=== PATIENT | male | born 1945 | race Caucasian/White ===

== ENCOUNTER 2020-01-23 11:29 | Inpatient (IN) ==
[2020-01-23 12:19] LABS: ABG Base Excess 2.3 MMOL/L (-2.5-2.5); ABG HCO3 26.5 MMOL/L (20-26); ABG Oxygen Saturation 96.8 % (95-100); ABG PCO2 40.1 MM HG (35-48); ABG PH 7.432 (7.35-7.45); ABG PO2 89.1 MM HG (80-95); ABG TCO2 23.7 MMOL/L (23-27)
[2020-01-23 12:29] LABS: Basophils % 0.2 % (0.0-0.8); Hematocrit 37.5 VOL% (42.0-52.0); Immature Granulocytes % 0.5 %; Immature Granulocytes Absolute 0.03 #; Lymphocytes # 0.2 10*3/uL (1.4-4.0); Lymphocytes % 3.9 % (21.2-54.2); Monocytes % 5.4 % (1.7-12.7); Platelet Count 137 T/CUMM (130-400); Red Blood Count 3.75 MC/CUMM (3.8-5.5); Red Cell Distribution Width 17.1 % (9.3-17.3); White Blood Count 5.9 T/CUMM (4-12)
[2020-01-23 12:44] LABS: INR 1.2; PT Patient Result 12.5 SECS (9.8-11.9); Partial Thromboplastin Time 26.6 SECS (23.9-33.8)
[2020-01-23 12:51] LABS: Albumin 1.7 G/DL (3.4-5.0); Bilirubin,Total 0.6 MG/DL (0.2-1.0); Calcium 7.9 MG/DL (8.5-10.1); Osmolality,Calculated 274.7 MOS/KG (273-304); Total Protein 5.4 G/DL (6.4-8.3)
[2020-01-23 12:57] LABS: Anisocytosis Slight; Lymphocytes 5 % (20-55); Macrocytosis Slight; Platelet Estimate Adequate; Segmented Neutrophils 91 % (50-85); Total Cells Counted 100
[2020-01-23 12:58] LABS: Reactive Lymphocytes Slight
[2020-01-23] MEDS ORDERED: MAGNESIUM SULF RIDER 4 GM in PREMIX 1 EACH IV PRN (17:25)
[2020-01-23] MEDS ORDERED: ACETAMINOPHEN 325 MG TABLET PO PRN (17:25)
[2020-01-23] MEDS ORDERED: ONDANSETRON 4 MG/2 ML VIAL IV PRN (17:25)
[2020-01-23] MEDS ORDERED: DEXTROSE 50% 25 GM/50 ML VIAL IV PRN (17:25)
[2020-01-23] MEDS ORDERED: MAGNESIUM SULF RIDER 2 GM in PREMIX 1 EACH IV PRN (17:25)
[2020-01-23] MEDS ORDERED: POTASSIUM CHLORIDE RIDER 10 MEQ in PREMIX 1 EACH IV PRN (17:25)
[2020-01-23] MEDS ORDERED: GLUCAGON 1 MG VIAL IM PRN (17:25)
[2020-01-23] MEDS: SODIUM CHLORIDE 0.9% 1,000 ML IV SCH (18:17)
[2020-01-23] MEDS: cefTRIAXone 1,000 MG in SYRINGE 1 EACH IV SCH (18:18)
[2020-01-23] MEDS: methylPREDNISolone SOD SUC 40 MG/1 ML VIAL IV SCH (18:18)
[2020-01-23] MEDS: INSULIN LISPRO 100 UNIT/ML SUBCUT SCH (21:00)
[2020-01-23] MEDS: DOCUSATE SODIUM 100 MG CAPSULE PO SCH (21:30)
[2020-01-23] MEDS: ENOXAPARIN 40 MG/0.4 ML SYRINGE SUBCUT SCH (21:30)
[2020-01-23 22:12] LABS: Apearance,Urine CLEAR (Clear); Bilirubin,Urine Negative (Negative); Blood, Urine Negative (Negative); Glucose,Urine (UA) Negative (Negative); Hyaline Casts,Urine 1 /LPF (0-3); Ketones,Urine 5 mg/dL (Negative); Mucus,Urine Few /LPF (Occasional); Nitrite,Urine Negative (Negative); Protein,Urine Negative; RBC,Urine <1 /HPF (0-4); Urine Color Yellow (Yellow); WBC,Urine 1 /HPF (0-6)
[2020-01-24] MEDS: SODIUM CHLORIDE 0.9% 1,000 ML IV SCH ×4 (02:21→21:29)
[2020-01-24] MEDS: methylPREDNISolone SOD SUC 40 MG/1 ML VIAL IV SCH ×2 (05:31→21:30)
[2020-01-24 06:38] LABS: Calcium 8.6 MG/DL (8.5-10.1); Osmolality,Calculated 280.4 MOS/KG (273-304)
[2020-01-24] MEDS ORDERED: PANTOPRAZOLE 40 MG TABLET PO SCH (09:00)
[2020-01-24] MEDS: INSULIN LISPRO 100 UNIT/ML SUBCUT SCH ×4 (09:07→21:33)
[2020-01-24] MEDS: cefTRIAXone 1,000 MG in SYRINGE 1 EACH IV SCH (09:08)
[2020-01-24] MEDS: DOCUSATE SODIUM 100 MG CAPSULE PO SCH ×2 (09:08→21:30)
[2020-01-24] MEDS: ENOXAPARIN 40 MG/0.4 ML SYRINGE SUBCUT SCH (21:32)
[2020-01-25] MEDS: SODIUM CHLORIDE 0.9% 1,000 ML IV SCH ×3 (04:47→18:09)
[2020-01-25 05:40] LABS: Hematocrit 35.1 VOL% (42.0-52.0); Hemoglobin 11.2 GM/DL (14.0-18.0); Immature Granulocytes % 0.6 %; Immature Granulocytes Absolute 0.02 #; Lymphocytes # 0.3 10*3/uL (1.4-4.0); Lymphocytes % 10.5 % (21.2-54.2); Mean Corpuscular HGB Conc 31.9 GM/DL (32-36); Mean Corpuscular Volume 101.4 FL (87-102); Monocytes % 4.1 % (1.7-12.7); Neutrophils % 84.8 % (38.7-73.9); Platelet Count 117 T/CUMM (130-400); Red Blood Count 3.46 MC/CUMM (3.8-5.5); Red Cell Distribution Width 16.7 % (9.3-17.3); White Blood Count 3.1 T/CUMM (4-12)
[2020-01-25 05:52] LABS: Calcium 8.4 MG/DL (8.5-10.1); Osmolality,Calculated 282.4 MOS/KG (273-304)
[2020-01-25] MEDS: cefTRIAXone 1,000 MG in SYRINGE 1 EACH IV SCH (08:53)
[2020-01-25] MEDS: INSULIN LISPRO 100 UNIT/ML SUBCUT SCH ×4 (08:53→21:41)
[2020-01-25] MEDS: DOCUSATE SODIUM 100 MG CAPSULE PO SCH ×2 (08:53→21:50)
[2020-01-25] MEDS: methylPREDNISolone SOD SUC 40 MG/1 ML VIAL IV SCH ×2 (08:54→21:48)
[2020-01-25] MEDS: ENOXAPARIN 40 MG/0.4 ML SYRINGE SUBCUT SCH (21:50)
[2020-01-26] MEDS: SODIUM CHLORIDE 0.9% 1,000 ML IV SCH ×3 (01:56→17:36)
[2020-01-26 06:06] LABS: Calcium 8.1 MG/DL (8.5-10.1); Osmolality,Calculated 281.4 MOS/KG (273-304)
[2020-01-26] MEDS: INSULIN LISPRO 100 UNIT/ML SUBCUT SCH ×4 (08:00→20:33)
[2020-01-26] MEDS: cefTRIAXone 1,000 MG in SYRINGE 1 EACH IV SCH (08:40)
[2020-01-26] MEDS: methylPREDNISolone SOD SUC 40 MG/1 ML VIAL IV SCH ×2 (08:42→21:12)
[2020-01-26] MEDS: DOCUSATE SODIUM 100 MG CAPSULE PO SCH ×2 (08:42→21:11)
[2020-01-26] MEDS: ENOXAPARIN 40 MG/0.4 ML SYRINGE SUBCUT SCH (21:11)
[2020-01-27 06:41] LABS: Calcium 8.1 MG/DL (8.5-10.1); Osmolality,Calculated 282.3 MOS/KG (273-304)
[2020-01-27] MEDS: INSULIN LISPRO 100 UNIT/ML SUBCUT SCH ×4 (07:30→20:54)
[2020-01-27] MEDS: DOCUSATE SODIUM 100 MG CAPSULE PO SCH ×2 (08:57→20:53)
[2020-01-27] MEDS: methylPREDNISolone SOD SUC 40 MG/1 ML VIAL IV SCH ×2 (08:59→20:10)
[2020-01-27] MEDS: cefTRIAXone 1,000 MG in SYRINGE 1 EACH IV SCH (09:02)
[2020-01-27] MEDS ORDERED: diphenhydrAMINE CAP 25 MG CAPSULE PO ONE (11:27)
[2020-01-27] MEDS: diphenhydrAMINE CAP 25 MG CAPSULE PO SCH (20:53)
[2020-01-27] MEDS: ENOXAPARIN 40 MG/0.4 ML SYRINGE SUBCUT SCH (20:54)
[2020-01-27] MEDS: TEMAZEPAM 7.5 MG CAPSULE PO SCH (20:54)
[2020-01-27] MEDS: SODIUM CHLORIDE 0.9% 1,000 ML IV SCH (20:59)
[2020-01-28 04:29] LABS: Osmolality,Calculated 284.3 MOS/KG (273-304)
[2020-01-28] MEDS: INSULIN LISPRO 100 UNIT/ML SUBCUT SCH ×4 (08:47→20:42)
[2020-01-28] MEDS: DOCUSATE SODIUM 100 MG CAPSULE PO SCH ×2 (08:48→20:41)
[2020-01-28] MEDS: cefTRIAXone 1,000 MG in SYRINGE 1 EACH IV SCH (08:48)
[2020-01-28] MEDS: methylPREDNISolone SOD SUC 40 MG/1 ML VIAL IV SCH ×2 (08:48→20:38)
[2020-01-28] MEDS: diphenhydrAMINE CAP 25 MG CAPSULE PO SCH ×2 (08:48→20:41)
[2020-01-28] MEDS: SODIUM CHLORIDE 0.9% 1,000 ML IV SCH ×2 (11:24→20:47)
[2020-01-28 15:08] LABS: Hematocrit 36.9 VOL% (42.0-52.0); Immature Granulocytes % 0.3 %; Immature Granulocytes Absolute 0.02 #; Lymphocytes # 0.5 10*3/uL (1.4-4.0); Lymphocytes % 8.4 % (21.2-54.2); Mean Corpuscular HGB Conc 32.5 GM/DL (32-36); Mean Corpuscular Volume 98.9 FL (87-102); Mean Platelet Volume 10.7 FL (9.6-12.0); Monocytes % 3.9 % (1.7-12.7); Neutrophils % 87.4 % (38.7-73.9); Platelet Count 148 T/CUMM (130-400); Red Blood Count 3.73 MC/CUMM (3.8-5.5); Red Cell Distribution Width 16.6 % (9.3-17.3); White Blood Count 6.2 T/CUMM (4-12)
[2020-01-28] MEDS: TEMAZEPAM 7.5 MG CAPSULE PO SCH (20:41)
[2020-01-28] MEDS: ENOXAPARIN 40 MG/0.4 ML SYRINGE SUBCUT SCH (20:41)
[2020-01-29 06:39] LABS: Calcium 7.9 MG/DL (8.5-10.1); Osmolality,Calculated 279.5 MOS/KG (273-304)
[2020-01-29] MEDS: INSULIN LISPRO 100 UNIT/ML SUBCUT SCH ×4 (07:06→21:24)
[2020-01-29] MEDS: diphenhydrAMINE CAP 25 MG CAPSULE PO SCH ×2 (09:12→21:24)
[2020-01-29] MEDS: methylPREDNISolone SOD SUC 40 MG/1 ML VIAL IV SCH (09:13)
[2020-01-29] MEDS: cefTRIAXone 1,000 MG in SYRINGE 1 EACH IV SCH (09:13)
[2020-01-29] MEDS: DOCUSATE SODIUM 100 MG CAPSULE PO SCH ×2 (09:17→21:24)
[2020-01-29] MEDS: SODIUM CHLORIDE 0.9% 1,000 ML IV SCH ×2 (09:18→10:09)
[2020-01-29] MEDS: TEMAZEPAM 7.5 MG CAPSULE PO SCH (21:24)
[2020-01-29] MEDS: ENOXAPARIN 40 MG/0.4 ML SYRINGE SUBCUT SCH (21:24)
[2020-01-30] MEDS: SODIUM CHLORIDE 0.9% 1,000 ML IV SCH ×2 (00:13→01:00)
[2020-01-30] MEDS: INSULIN LISPRO 100 UNIT/ML SUBCUT SCH ×5 (07:28→21:35)
[2020-01-30] MEDS: DOCUSATE SODIUM 100 MG CAPSULE PO SCH ×3 (08:39→21:34)
[2020-01-30] MEDS: diphenhydrAMINE CAP 25 MG CAPSULE PO SCH ×2 (08:39→21:34)
[2020-01-30] MEDS: cefTRIAXone 1,000 MG in SYRINGE 1 EACH IV SCH (08:40)
[2020-01-30] MEDS: methylPREDNISolone SOD SUC 40 MG/1 ML VIAL IV SCH (08:40)
[2020-01-30] MEDS ORDERED: guaiFENesin 200 MG/10 ML UDCUP PO PRN (17:06)
[2020-01-30] MEDS: TEMAZEPAM 7.5 MG CAPSULE PO SCH (21:34)
[2020-01-30] MEDS: ENOXAPARIN 40 MG/0.4 ML SYRINGE SUBCUT SCH (21:35)
[2020-01-31] MEDS: SODIUM CHLORIDE 0.9% 1,000 ML IV SCH (01:00)
[2020-01-31] MEDS: diphenhydrAMINE CAP 25 MG CAPSULE PO SCH (08:03)
[2020-01-31] MEDS: DOCUSATE SODIUM 100 MG CAPSULE PO SCH (08:03)
[2020-01-31] MEDS: methylPREDNISolone SOD SUC 40 MG/1 ML VIAL IV SCH (08:04)
[2020-01-31] MEDS: INSULIN LISPRO 100 UNIT/ML SUBCUT SCH ×2 (08:04→11:49)
[2020-01-31 12:07] VITALS: BP 123/80
== END 2020-01-31 12:45 | disposition hospice, home (50) | DRG 177 ==
LOC: EDUNIT# → EDBD → N.ED 11:29 → N.EDINP 14:20 → N.2E 16:44
PROVIDERS: ADMIT Family Medicine; ATTEND Family Medicine